=== PATIENT | female | born 1945 | race Caucasian/White ===

== ENCOUNTER 2021-09-27 07:43 | Outpatient (CLI) | payer MEDICARE, BC, SELFPAY ==
--- NOTE | 2021-09-27 07:45 | MM_ITS ---
Final Report Patient: MAIRA GARCIA Facility:?[facility] Patient ID:?[id number] Study:?XRay Breast Bilateral 3D W/CAD-09/27/2021 8:43:35 AM Ordering Physician:Gladys La Final Report: BILATERAL MAMMOGRAM WITH COMPUTER-AIDED DETECTION AND TOMOSYNTHESIS TECHNIQUE: CC and MLO views were obtained. These mammographic images have been obtained using full-field digital technique. These mammographic images were interpreted with the benefit of computer-aided detection. Breast Tomosynthesis was used in this interpretation. COMPARISON FILM: 03/15/2020, 03/11/2019, 03/11/2018. FINDINGS: There are scattered areas of fibroglandular density IMPRESSION: There is no radiographic evidence for malignancy. ASSESSMENT: BI-RADS Category 1: Negative RECOMMENDATION: Routine screening mammogram in 1 year. A lay language report of this examination will be provided to the patient. Gerson Gregory M.D. Diagnostic/Musculoskeletal Radiologist [email or web address] JACOB/ela Transcribed: 3:16 p.m. CHRIS/Dictated by: Gerson Gregory MD @ 09/27/2021 9:10:00 AM (Electronic Signature)
== END 2021-09-27 07:44 | disposition home or self-care (01) ==
LOC: MAMMO 07:46
PROVIDERS: Visit Provider Internal Medicine
DX: Z12.31 Encounter for screening mammogram for malignant neoplasm of breast (principal); R92.8 Other abnormal and inconclusive findings on diagnostic imaging of breast
CPT/HCPCS: 77063; 77067

== ENCOUNTER 2022-01-09 16:25 | Outpatient (CLI) | payer MEDICARE, BC, SELFPAY ==
[2022-01-09 13:28] LABS: Chloride* 102 mmol/L (96-114); Sodium* 135 mmol/L (135-149)
[2022-01-09 13:29] LABS: Potassium* 4.6 mmol/L (3.6-5.1)
[2022-01-09 13:31] LABS: Blood Urea Nitrogen* 21 mg/dL (7-30); Carbon Dioxide* 23 mmol/L (20-32); Cholesterol* 197 mg/dL (90-199); Creatinine* 0.9 mg/dL (0.5-1.5); Estimated Glomerular Filt Rate 67 ml/min; Glucose* 112 mg/dL (60-115)
[2022-01-09 13:32] LABS: Calcium* 9.8 mg/dL (8.4-10.6); HDL Cholesterol* 59 mg/dL (>=50); LDL Cholesterol Calculated 112 mg/dL (<100); Triglycerides* 132 mg/dL (40-149)
== END 2022-01-09 16:26 | disposition home or self-care (01) ==
PROVIDERS: Visit Provider Internal Medicine
DX: E78.5 Hyperlipidemia, unspecified (principal); I10 Essential (primary) hypertension
CPT/HCPCS: 80048; 80061

== ENCOUNTER 2022-12-14 09:01 | Outpatient (CLI) | payer MEDICARE, BC, SELFPAY ==
--- NOTE | 2022-12-14 09:15 | CRLHL7_ITS ---
For Patients: As a result of the Century Cures Act, medical imaging exams and procedure reports are released immediately into your electronic medical record. You may view this report before your referring provider. If you have questions, please contact your health care provider. BILATERAL SCREENING MAMMOGRAM WITH COMPUTER-AIDED DETECTION AND TOMOSYNTHESIS TECHNIQUE: CC and MLO views were obtained. These mammographic images have been obtained using full-field digital technique. These mammographic images were interpreted with the benefit of computer-aided detection. Breast Tomosynthesis was used in this interpretation. COMPARISON FILM: 09/27/21, 03/15/20, 03/11/19. FINDINGS: The breasts are heterogeneously dense, which may obscure small masses IMPRESSION: There is no radiographic evidence for malignancy. ASSESSMENT: BI-RADS Category 2: Benign RECOMMENDATION: Routine screening mammogram in 1 year. A lay language report of this examination will be provided to the patient. Keenan Huitron M.D. Diagnostic Radiologist [email or web address] CHRIS/Dictated by: Keenan Huitron MD @ 12/14/2022 12:33:00 PM (Electronically Signed)
== END 2022-12-14 09:02 | disposition home or self-care (01) ==
LOC: MAMMO 09:02
PROVIDERS: PCP Internal Medicine; Visit Provider Internal Medicine
DX: Z12.31 Encounter for screening mammogram for malignant neoplasm of breast (principal); R92.2 Inconclusive mammogram
CPT/HCPCS: 77063; 77067

== ENCOUNTER 2022-12-24 06:31 | Outpatient (CLI) | payer MEDICARE, BC, SELFPAY ==
--- NOTE | 2022-12-24 08:07 | P.ANES_ITS ---
Anesthesia Charges Start Date/Time Anesthesia Start Date: 12/24/22 Anesthesia Start Time: 07:20 Stop Date/Time Anesthesia Stop Date: 12/24/22 Anesthesia Stop Time: 08:02 Summary Extremes of Age - Over 70 or under 1: INVESTMENT SPECIALIST
== END 2022-12-24 06:32 | disposition home or self-care (01) ==
LOC: OP CLINIC 06:33
PROVIDERS: PCP Internal Medicine; Visit Provider Surgery
DX: Z12.11 Encounter for screening for malignant neoplasm of colon (principal); K64.4 Residual hemorrhoidal skin tags; K57.30 Diverticulosis of large intestine without perforation or abscess without bleeding; Z86.010 Personal history of colon polyps
CPT/HCPCS: 45378; 812; 99100; J2704

== ENCOUNTER 2023-01-03 08:42 | Emergency (ER) | payer MEDICARE, BC, SELFPAY ==
[2023-01-03 09:03] VITALS: BP 116/71; PULSE 88; RESP 16; TEMP 36.1; O2SAT 97; BMI 27.3
== END 2023-01-03 10:37 | disposition left against medical advice (07) ==
LOC: ED 10:34
PROVIDERS: Emergency Provider Emergency Medicine; PCP Internal Medicine
DX: Z53.21 Procedure and treatment not carried out due to patient leaving prior to being seen by health care provider (principal)

== ENCOUNTER 2023-01-09 08:30 | Outpatient (CLI) | payer MEDICARE, BC, SELFPAY | END 2023-01-09 08:31 | disposition home or self-care (01) | LOC: NFLDREF 01-14 06:00 | PROVIDERS: PCP Internal Medicine; Referring Provider Internal Medicine; Visit Provider Internal Medicine | DX: E78.5 Hyperlipidemia, unspecified (principal); I10 Essential (primary) hypertension; R73.03 Prediabetes | CPT/HCPCS: 80048; 80061 ==

== ENCOUNTER 2023-12-25 07:35 | Outpatient (CLI) | payer MEDICARE, BC, SELFPAY ==
--- OUTSIDE RECORDS SUMMARY | 2023-12-25 07:37 | XMS_ITS | Clinical Summary ---
Author Organization [facility] Address [address] [place] [address] Care Team Providers Care Logistic Manager Name Role Phone Unavailable Primary Care Provider Unavailabl e Source Comments You are receiving this document as you are listed as the primary care provider,follow-up provider, or the patient has been referred to you for consultation.This is in compliance with the Medicare and[facility] EHR Incentive Program,which states Providers who transition their patient to another setting of careor provider of care or refers their patient to another provider of care shouldprovide summary care record for each transition of care or referral. [employer] Allergies Active Allergy Reactions Criticality Noted Date Comments Celecoxib Hives 11/28/2011 Lactose Diarrhea 01/25/2012 Medications Medication Sig Dispensed Refills Start Date End Date Status lisinopril (ZESTRIL) 40 MG tablet Take 40 mg by mouth daily (every 24 hours). 01/24/2012 Active citalopram (CELEXA) 20 MG tablet Take 20 mg by mouth daily (every 24 hours). 01/24/2012 Active aspirin EC 81 MG enteric coated tablet Take 81 mg by mouth daily (every 24 hours). 01/24/2012 Active simvastatin (ZOCOR) 20 MG tablet Take 20 mg by mouth nightly. 01/24/2012 Active [place]-3 Fatty Acids (SUPER OMEGA 3 EPA/DHA OR) Take 1 tablet by mouth daily (every 24 hours). 01/24/2012 Active raloxifene (EVISTA) 60 MG tablet Take 60 mg by mouth daily (every 24 hours). 01/24/2012 Active oxyCODONE (ROXICODONE) 5 MG immediate release tablet Take 1 tablet by mouth every 2 hours as needed. 90 tablet 0 01/26/2012 Active Additional Information Patient not taking.Reported on 01/18/2021 docusate sodium (COLACE) 100 MG capsule Take 1 capsule by mouth 2 times daily. 30 capsule 0 01/26/2012 Active Additional Information Patient not taking.Reported on 01/18/2021 calcium carbonate (AKA MAALOX QUICK DISSOLVE) 600 MG chewable tablet Take 1 tablet by mouth daily (every 24 hours). 01/24/2012 Active Active Problems No known active problems Immunizations Name Administration Dates Next Due Flu Vac Preserv Free (3+yrs) 12/18/2011 Social History Tobacco Use Types Packs/Day Years Used Date Smoking Tobacco: Never Smokeless Tobacco: Never Sex and Gender Information Value Date Recorded Sex Assigned at Not on file Gender Identity Not on file Sexual Orientation Not on file Last Filed Vital Signs Vital Sign Reading Time Taken Comments Blood Pressure 127/75 01/26/2012 7:00 AM CDT Pulse 66 01/26/2012 7:00 AM CDT Temperature 36.8 ??C (98.2 ??F) 01/26/2012 7:00 AM CD T Respiratory Rate 16 01/26/2012 7:00 AM CDT Oxygen Saturation 95% 01/26/2012 7:00 AM CDT Inhaled Oxygen Concentration - - Weight 69.9 kg (154 lb) 01/18/2021 10:24 AM CDT Height 157.5 cm (5' 2) 01/18/2021 10:24 AM CDT Body Mass Index 28.17 01/18/2021 10:24 AM CDT Plan of Treatment Health Maintenance Due Date Last Done Comments Hep C Screening (Preventive Services) 1945 Medicare Annual Wellness Visit 1945 Dexa 10/15/2011 RSV (1 - 1-dose 75+ series) 2021 DTaP/Tdap/Td (2 - Tdap) 08/05/2023 08/04/2013 COVID-19 Vaccine ( season) 2023 07/17/2021, 01/24/2021, 06/15/2020, Additional history exists Influenza (#1) 2023 01/09/2021, 11/30, 12/30/2017, Additional history exists Pneumococcal 65+ Yrs Completed 02/02/2015, 01/08/2014, 01/08/2014 Zoster/Shingles Completed 03/15/2020, 10/2019, 09/13/2016 HepA Aged Out No longer eligi ble based on patient's age to complete this topic HepB Aged Out No longer eligi ble based on patient's age to complete this topic Hib Aged Out No longer eligi ble based on patient's age to complete this topic IPV (Polio) Aged Out No longer eligi ble based on patient's age to complete this topic MCV4 Aged Out No longer eligi ble based on patient's age to complete this topic Advance Directives * Full Code (Latest Code Status on File) Date Activated Date Inactivated Comments 01/25/2012 3:07 PM 01/26/2012 4:11 PM
--- OUTSIDE RECORDS SUMMARY | 2023-12-25 07:37 | XMS_ITS | Clinical Summary ---
Author Organization [facility] Address [address] [place] [address] Care Team Providers Care Roper Operator Name Role Phone Unavailable Primary Care Provider Unavailabl e Allergies No known active allergies Medications Medication Sig Dispensed Refills Start Date End Date Status aspirin (ASA) 81 MG EC tabletIndications:Alcoh ol abuse Take 1 tablet (81 mg) by mouth daily 30 tablet 1 06/05/2018 Active folic acid (FOLVITE) 1 MG tabletIndications:Alcoh ol abuse Take 1 tablet (1 mg) by mouth daily 30 tablet 1 06/05/2018 Active multivitamin w/minerals (THERA-VIT-M) tabletIndications:Alcoh ol abuse Take 1 tablet by mouth daily 30 tablet 1 06/05/2018 Active vitamin D3 (CHOLECALCIFEROL) 1000 units (25 mcg) tablet Take by mouth daily 07/08/2018 Active hydrOXYzine (ATARAX) 10 MG tabletIndications:Moder ate episode of recurrent major depressive disorder TAKE 1 TABLET(10 MG) BY MOUTH EVERY 4 HOURS NEEDED FOR ANXIETY 90 tablet 1 10/02/2019 Active amLODIPine (NORVASC) 2.5 MG tabletIndications:Essen tial hypertension Take 1 tablet (2.5 mg) by mouth daily 90 tablet 03/10/2020 Active lisinopril (ZESTRIL) 40 MG tabletIndications:Essen tial hypertension TAKE 1 TABLET(40 MG) BY MOUTH DAILY 30 tablet 06/07/2020 Active citalopram (CELEXA) 40 MG tabletIndications:Moder ate episode of recurrent major depressive disorder TAKE 1 TABLET(40 MG) BY MOUTH DAILY 30 tablet 06/07/2020 Active mirtazapine (REMERON) 15 MG tabletIndications:Moder ate episode of recurrent major depressive disorder TAKE 1 TABLET(15 MG) BY MOUTH AT BEDTIME 30 tablet 06/07/2020 Active simvastatin (ZOCOR) 20 MG tabletIndications:Hyper lipidemia, unspecified hyperlipidemia type TAKE 1 TABLET(20 MG) BY MOUTH AT BEDTIME 30 tablet 06/07/2020 Active Active Problems Problem Noted Date Diagnosed Date Prediabetes 12/17/2018 Senile osteoporosis 12/12/2018 Alcohol dependence in remission 07/09/2018 Essential hypertension 07/08/2018 Moderate episode of recurrent major depressive d isorder 07/08/2018 Hyperlipidemia, unspecified hyperlipidemia type 07/08/2018 Osteopenia, unspecified location 07/08/2018 Resolved Problems Problem Noted Date Diagnosed Date Resolved Date Withdrawn from alcohol detoxification program 05/27/19 19 07/09/2018 Alcohol abuse 05/27/2018 07/09/2018 Immunizations Name Administration Dates Next Due Influenza (High Dose) Trivalent,PF (Fluzone) Influenza (intradermal) 12/30/2017 Pneumococcal, Unspecified 02/02/2015,01/08/2014 Tdap (Adult) Unspecified Formulation 08/04/2013 Zoster vaccine, live 09/13/2016 Social History Tobacco Use Types Packs/Day Years Used Date Smoking Tobacco: Never Smokeless Tobacco: Never Alcohol Use Standard Drinks/Week Comments Not Currently 0 (1 standard drink = 0.6 oz pur e alcohol) 5 drinks a day PHQ-2 Answer Date Recorded PHQ-2 Score 0 08/07/2019 Adolescent Education Answer Date Record ed Getting School Help Needed Not on file 01/06 Sex and Gender Information Value Date Recorded Sex Assigned at Not on file Gender Identity Not on file Sexual Orientation Not on file Last Filed Vital Signs Vital Sign Reading Time Taken Comments Blood Pressure 121/66 01/15/2019 11:09 AM CDT Pulse 103 01/15/2019 11:09 AM CDT Temperature 37.7 ??C (99.8 ??F) 01/15/2019 11:09 AM C DT Respiratory Rate 16 01/15/2019 11:09 AM CDT Oxygen Saturation 96% 01/15/2019 11:09 AM CDT Inhaled Oxygen Concentration - - Weight 65.3 kg (144 lb) 12/12/2018 7:44 AM CDT Height 157.5 cm (5' 2) 12/12/2018 7:44 AM CDT Body Mass Index 26.34 12/12/2018 7:44 AM CDT Plan of Treatment Not on file Advance Directives For more information, please contact: [phone] * Full Code (Latest Code Status on File) Date Activated Date Inactivated Comments 05/27/2018 11:17 AM 06/04/2018 7:49 PM Question Answer Comments Code status determined by: Unable to det ermine; FULL CODE until documents or legal decision maker available
--- OUTSIDE RECORDS SUMMARY | 2023-12-25 07:37 | XMS_ITS | Clinical Summary ---
Author Organization [facility] Address [place], [place] [address] Care Team Providers Care Landscape Specialist Name Role Phone Bessie Collins MD Primary Care Provider [phone] Sanjay Zhang MD Unavailable [phone] Allergies Active Allergy Reactions Criticality Noted Date Comments Celecoxib Hives,Itching 09/07/2015 Medications Medication Sig Dispensed Refills Start Date End Date Status LISINOPRIL 40 MG TAB Once daily Active HYDROCHLOROTHIAZIDE 25 MG TAB take 1 tablet (25mg) by oral route once daily Active CITRUCEL FIBER LAXATIVE PACKET as directed Active MULTIVITAMIN TAB take 1 tablet by oral route once daily with food Active ACTONEL 35 MG TAB take 1 tablet (35mg) by oral route once weekly in the morning, at least 30 minutes before the first food, beverage, or medication of the day Active bromfenac 0.07% (PROLENSA) 0.07 % ophthalmic solution 1 drop in surgical eye 1 time daily x 4wks. Start 1 day before surgery 3 mL 1 08/13/2015 Active prednisoLONE acetate 1% ophthalmic (ECONOPRED PLUS, PRED FORTE, OMNIPRED) suspension 1 drop in surgical eye 4 times daily x 4wks. Start 1 day before surgery 15 mL 1 07/18/2015 Active moxifloxacin (VIGAMOX) 0.5 % ophthalmic solution 1 drop in surgical eye 4 times daily x 7days. Start 1 day before surgery 3 mL 1 07/18/2015 Active citalopram (CELEXA) 20 mg tablet Take 20 mg by mouth once daily. Active simvastatin (ZOCOR) 20 mg tablet Take 20 mg by mouth at bedtime. Active amLODIPine (NORVASC) 2.5 mg tablet Take 2.5 mg by mouth once daily. Active raloxifene (EVISTA) 60 mg tablet Take 60 mg by mouth once daily. Active lisinopril (PRINIVIL; ZESTRIL) 40 mg tablet Take 40 mg by mouth once daily. Active CALCIUM CITRATE/VITAMIN D3 (CITRACAL + D ORAL) Take 200 mg by mouth once daily. Active aspirin (ECOTRIN) 81 mg enteric coated tablet Take 81 mg by mouth once daily with a meal. Active Active Problems Problem Noted Date Diagnosed Date Family history of ischemic heart disease 006 Pure hypercholesterolemia Family History Medical History Relation Name Comments Cancer-breast Sister Cancer-colon No Family History Cancer-ovarian No Family History Relation Name Status Comments Sister Social History Tobacco Use Types Packs/Day Years Used Date Smoking Tobacco: Former Smokeless Tobacco: Never Alcohol Use Standard Drinks/Week Comments Yes 0 (1 standard drink = 0.6 oz pur e alcohol) Sex and Gender Information Value Date Recorded Sex Assigned at Not on file Gender Identity Not on file Sexual Orientation Not on file Obstetrics History Para Term AB IAB SAB Ectopic Multiple Livin g Live Births 0 0 0 0 0 0 0 0 Last Filed Vital Signs Vital Sign Reading Time Taken Comments Blood Pressure 146/84 09/29/2015 11:45 AM CDT Pulse 81 09/29/2015 11:45 AM CDT Temperature 36.1 ??C (97 ??F) 09/29/2015 8:51 AM CDT Respiratory Rate 16 09/29/2015 11:45 AM CDT Oxygen Saturation 97% 09/29/2015 11:45 AM CDT Inhaled Oxygen Concentration - - Weight 59.9 kg (132 lb) 09/28/2015 12:42 AM CDT Height 157.5 cm (5' 2) 09/28/2015 12:42 AM CDT Body Mass Index 24.14 09/28/2015 12:42 AM CDT Plan of Treatment Health Maintenance Due Date Last Done Comments Tdap 1957 Depression screening for age 12+ 1958 BMI (ht and wt on same day) for age 18+ 1964 Hepatitis C screening for age 18-79 1964 Tetanus booster 1966 Zoster (shingles) series for age 50+ (1 of 2) 10/14/18 97 DEXA/DXA scan for age 65+ 10/15/2011 Pneumococcal series for age 65+ (1 of 1 - PCV) 012 RSV vaccine for adults or pr egnancy (1 - 1-dose 75+ series) 2021 COVID-19 vaccine series ( - 2023- season) 4 Influenza for age 65+ 12/01/2023 Medical Devices Implanted Type Area Health Underwriter Device Identifier Shelf Expiration Date Model / Serial / Lot Lens Iol Toric Iq At3 15.0 - [id number] Implanted:Qty: 1 on 09/08/2015 by Candice Booth MD at [facility] Right: Eye [employer] 01/07/2017 SN6AT3# / [id number] / Lens Iol Toric Iq At3 14.0 - [id number] Implanted:Qty: 1 on 09/29/2015 by Candice Booth MD at [facility] Left: Eye [employer] 05/29/2017 SN6AT3# / [id number] / Advance Directives * Full Code (Latest Code Status on File) Date Activated Date Inactivated Comments 09/29/2015 8:43 AM 09/29/2015 2:07 PM * Full Code Date Activated Date Inactivated Comments 09/08/2015 6:16 AM 09/08/2015 10:47 AM Care Teams Landscape Specialist Relationship Specialty Start Date End Date Bessie Collins MD [address] [place] [address] PCP - General Internal Medicine 09/06/15 Sanjay Zhang MD [address] [place] [address] Internal Medicine 09/06/15
--- OUTSIDE RECORDS SUMMARY | 2023-12-25 07:37 | XMS_ITS | Continuity of Care Document ---
Author Organization [facility] Address [address] [place] [address] Phone Care Team Providers Care Clothespin Drier Operator Name Role Phone Jc Zamora MD Unavailable Unavailable Procedures Procedure Date Postop Followup Visit Remove Intraspinal Lesion, Lumbar Advance Directives Directive Yes / No Effective Date File Name No Information Encounters Encounter Description Practice Location Reason(s) For Visit Diagnoses Date Provider Providers Copied on Encounter [facility], [address], [place], [place], [id number], [place] tel:[phone] [facility] No Information 5 Sera Greene. [facility], [address] [place] [address] , [place], [address], [place]. tel:[phone] [facility], [address] [place] [address], [address], [place] tel:[phone] [facility] No Information 2 Sera Greene. [facility], [address] [place], [address], [place]. tel:[phone] Referring Provider: LEATHA Collazo [place]. tel:[phone] [facility], [address] [address], [place], [address], [place] tel:[phone] [facility] No Information 2 Sera Greene. [facility], [address] [place], [address], [place]. tel:[phone] Referring Provider: LEATHA Collazo [place]. tel:[phone] Family History Family Member Type Diagnosis Age At Onset No Information Payers Payer name Insurance type Covered alliance party ID Authoriza tion(s) No Information Social History Type Description Quantity Date Captured Comments Sex Female Smoking Status No Information Chief Complaint And Reason For Visit No Information Reason For Referral Reason For Referral No Information History Of Present Illness Encounter Date Complaint History Of Prese nt Illness No Information Functional Status Date Functional Assessmen t No Information Instructions Date Instruction Additional Infor mation No Information Assessments Type Assessment Date No Information Patient Care Teams Name Effective Dates (start - stop) Status Members No Information
--- OUTSIDE RECORDS SUMMARY | 2023-12-25 07:37 | XMS_ITS | Referral Summary ---
Author Organization [facility] Address [address] [place] [address] Care Team Providers Care Central Office Associate Name Role Phone Unavailable Primary Care Provider [...] Advance Directives For more information, please contact: [phone] * Full Code (Latest Code Status on File) Date Activated Date Inactivated Comments 05/27/2018 11:17 AM 06/04/2018 7:49 PM Question Answer Comments Code status determined by: Unable to det ermine; FULL CODE until documents or legal decision maker available
--- OUTSIDE RECORDS SUMMARY | 2023-12-25 07:37 | XMS_ITS | Encounter Summary ---
Author Organization [facility] Address [facility] [place] [address] Care Team Providers Care Psychosocial Rehabilitation Counselor Name Role Phone [facility]- Primary Care Provider Juancho Deluca MD Primary Care Provider [phone] Juancho Deluca MD Unavailable [phone] Reason for Visit * Reason Onset Date Comments MH/CD Inpatient 05/27/2018 Encounter Details Date Type Department Care Team ([facility] st Contact Info) Description 05/27/2018 Telephone [facility] Behavioral Health Intake [address] [place] [phone] Generic, Behavioral Intake, MH/CD Inpatient Social History Tobacco Use Types Packs/Day Years Used Date Smoking Tobacco: Never Assessed Alcohol Use Standard Drinks/Week Comments Yes 0 (1 standard drink = 0.6 oz pur e alcohol) 5 drinks a day Sex and Gender Information Value Date Recorded Sex Assigned at Not on file Gender Identity Not on file Sexual Orientation Not on file documented as of this encounter Miscellaneous Notes * Telephone Encounter - Jovan Groves - 05/27/2018 10:42 AM CST Previous tele note from intake incorrect. Pt assigned to: Lana/3A REDUCER * Telephone Encounter - Micki Morris - 05/27/2018 6:41 AM CST 05/27/18 S: pt was bib son to [facility]. Pt is seeking etoh detox. B: pt reports drinking 5 glasses of burgundy daily for the past several months. Pt lives alone and is scared, fears she is going through withdrawal. Denies si. Pt had low K in the er but was given oral K. Denies other drug use. States she is not on meds. A: pt is cooperative. Vol. R: admit 3a/gueritaali -cd REDUCER documented in this encounter Plan of Treatment Not on file documented as of this encounter Visit Diagnoses Not on filedocumented in this encounter Care Teams Psychosocial Rehabilitation Counselor Relationship Specialty Start Date End Date [facility]- [address] [place] [address] PCP - General 05/27/18 07/07/18 Juancho Deluca MD [address], [place] [address] PCP - General Family Practice 07/08/18 12/22/20 [place] [address] [place] [address] Assigned PCP 06/12/18 12/15/21 documented as of this encounter
--- NOTE | 2023-12-25 07:45 | CRLHL7_ITS ---
For Patients: As a result of the Century Cures Act, medical imaging exams and procedure reports are released immediately into your electronic medical record. You may view this report before your referring provider. If you have questions, please contact your health care provider. BILATERAL SCREENING MAMMOGRAM WITH COMPUTER-AIDED DETECTION AND TOMOSYNTHESIS TECHNIQUE: CC and MLO views were obtained. These mammographic images have been obtained using full-field digital technique. These mammographic images were interpreted with the benefit of computer-aided detection. Breast Tomosynthesis was used in this interpretation. COMPARISON FILM: 12/14/22, 09/27/21, 03/15/20. FINDINGS: There are scattered areas of fibroglandular density IMPRESSION: There is no radiographic evidence for malignancy. ASSESSMENT: BI-RADS Category 2: Benign RECOMMENDATION: Routine screening mammogram in 1 year. A lay language report of this examination will be provided to the patient. Keenan Huitron M.D. Diagnostic Radiologist [email or web address] CHRIS/Dictated by: Keenan Huitron MD @ 01/02/2024 11:26:00 AM (Electronically Signed)
== END 2023-12-25 07:36 | disposition home or self-care (01) ==
LOC: MAMMO 07:35
PROVIDERS: PCP Internal Medicine; Visit Provider Internal Medicine
DX: Z12.31 Encounter for screening mammogram for malignant neoplasm of breast (principal)
CPT/HCPCS: 77063; 77067

== ENCOUNTER 2024-01-13 08:20 | Outpatient (CLI) | payer MEDICARE, BC, SELFPAY ==
--- OUTSIDE RECORDS SUMMARY | 2024-01-13 15:15 | XMS_ITS | Clinical Summary ---
Author Organization [facility] Address [place], [place] [address] Care Team Providers Care Coin Machine Assembler Name Role Phone Bessie Collins MD Primary Care Provider [phone] Sanjay Zhang MD Unavailable Unavailable Allergies Active Allergy Reactions Criticality Noted Date [...] series) 2021 COVID-19 vaccine series ( - season) 4 Influenza for age 65+ 12/01/2023 Medical Devices Implanted Type Area Licensed Nuclear Control Room Operator Device Identifier Shelf Expiration Date Model / Serial / Lot Lens Iol Toric Iq At3 15.0 - [id number] Implanted:Qty: 1 on 09/08/2015 by Candice Booth MD at [facility] Right: Eye [employer] 01/07/2017 SN6AT3# / [id number] / Lens Iol Toric Iq At3 14.0 - [id number] Implanted:Qty: 1 on 09/29/2015 by Candice Booth MD at [facility] Left: Eye [employer] 05/29/2017 SN6AT3# / [id number] / Advance Directives * Full Code (Latest Code Status on File) Date Activated Date Inactivated Comments 09/29/2015 8:43 AM 09/29/2015 2:07 PM * Full Code Date Activated Date Inactivated Comments 09/08/2015 6:16 AM 09/08/2015 10:47 AM Care Teams Coin Machine Assembler Relationship Specialty Start Date End Date Bessie Collins MD [address] [place] [address] PCP - General Internal Medicine 09/06/15 Sanjay Zhang MD [address] [place] [address] Internal Medicine 09/06/15
--- OUTSIDE RECORDS SUMMARY | 2024-01-13 15:15 | XMS_ITS | Referral Summary ---
Author Organization [facility] Address [address] [place] [address] Care Team Providers Care Supervisor Refractory Products Name Role Phone Unavailable Primary Care Provider [...] ate episode of recurrent major depressive disorder (H) TAKE 1 TABLET(10 MG) BY MOUTH EVERY [...] ate episode of recurrent major depressive disorder (H) TAKE 1 TABLET(40 MG) BY MOUTH DAILY 30 tablet 06/07/2020 Active mirtazapine (REMERON) 15 MG tabletIndications:Moder ate episode of recurrent major depressive disorder (H) TAKE 1 TABLET(15 MG) BY MOUTH AT [...] Advance Directives For more information, please contact: [phone] * Full Code (Latest Code Status on File) Date Activated Date Inactivated Comments 05/27/2018 11:17 AM 06/04/2018 7:49 PM Question Answer Comments Code status determined by: Unable to det ermine; FULL CODE until documents or legal decision maker available
--- OUTSIDE RECORDS SUMMARY | 2024-01-13 15:15 | XMS_ITS | Clinical Summary ---
Author Organization [facility] Address [address] [place] [address] Care Team Providers Care Site Supervising Technical Operator Name Role Phone Unavailable Primary Care Provider Unavailabl e Source Comments You are receiving this document as you are listed as the primary care provider,follow-up provider, or the patient has been referred to you for consultation.This is in compliance with the Medicare andMedicaid EHR Incentive Program,which states Providers who transition their patient to another setting of careor provider of care or refers their patient to another provider of care shouldprovide summary care record for each transition of care or referral. [employer] Allergies Active Allergy Reactions Criticality Noted Date [...] 20 mg by mouth nightly. 01/24/2012 Active Sho[place]-3 Fatty Acids (SUPER OMEGA 3 EPA/DHA OR) [...] on patient's age to complete this topic Infant RSV Aged Out No longer eligi ble based on patient's age to complete this topic MCV4 Aged Out No longer eligi ble based on patient's age to complete this topic Advance Directives * Full Code (Latest Code Status on File) Date Activated Date Inactivated Comments 01/25/2012 3:07 PM 01/26/2012 4:11 PM
--- OUTSIDE RECORDS SUMMARY | 2024-01-13 15:15 | XMS_ITS | Encounter Summary ---
Author Organization [place] Address [facility] [place] [address] Care Team Providers Care Batch Attendant Name Role Phone [facility]- Primary Care Provider Juancho Deluca MD Primary Care Provider [phone] Juancho Deluca MD Unavailable [phone] Reason for Visit * Reason Onset Date Comments MH/CD Inpatient 05/27/2018 Encounter Details Date Type Department Care Team ([facility] st Contact Info) Description 05/27/2018 Telephone [facility] Behavioral Health Intake [address] [place] [id number] Generic, Behavioral Intake, MH/CD Inpatient Social History [...] from intake incorrect. Pt assigned to: Lana/3A UM EVAPORATION OPERATOR * Telephone Encounter - Micki Morris - [...] is cooperative. Vol. R: admit 3a/gueritaali -cd UM EVAPORATION OPERATOR documented in this encounter Plan of Treatment Not on file documented as of this encounter Visit Diagnoses Not on filedocumented in this encounter Care Teams Batch Attendant Relationship Specialty Start Date End Date [facility]- [address] [place] [address] PCP - General 05/27/18 07/07/18 Juancho Deluca MD [address] [address] PCP - General Family Practice 07/08/18 12/22/20 [place] [address] [place] [address] Assigned PCP 06/12/18 12/15/21 documented as of this encounter
--- OUTSIDE RECORDS SUMMARY | 2024-01-13 15:15 | XMS_ITS | Clinical Summary ---
Author Organization [facility] Address [address] [place] [address] Care Team Providers Care Restaurant Floor Manager Name Role Phone Unavailable Primary Care [...] Advance Directives For more information, please contact: [phone] * Full Code (Latest Code Status on File) Date Activated Date Inactivated Comments 05/27/2018 11:17 AM 06/04/2018 7:49 PM Question Answer Comments Code status determined by: Unable to det ermine; FULL CODE until documents or legal decision maker available
--- OUTSIDE RECORDS SUMMARY | 2024-01-13 15:15 | XMS_ITS | Continuity of Care Document ---
Author Organization [facility] Address [address] [place] [address] Phone Care Team Providers Care Grid Casting Machine Operator Helper Name Role Phone Jc Zamora MD Unavailable Unavailable Procedures Procedure Date Postop Followup Visit Remove Intraspinal Lesion, Lumbar Advance Directives Directive Yes / No Effective Date File Name No Information Encounters Encounter Description Practice Location Reason(s) For Visit Diagnoses Date Provider Providers Copied on Encounter [facility], [address], [place], [place], [id number], [place] tel:[phone] [facility] No Information 5 Sera Greene. [facility], [address] [place] [address] , [place], [address], [place]. tel:[phone] [facility], [address] [place] [address], [address], [place] tel:[phone] [facility] No Information 2 Sera Greene. [facility], [address] [place], [address], [place]. tel:[phone] Referring Provider: LEATHA Collazo [place]. tel:[phone] [facility], [address] [address], [place], [address], [place] tel:[phone] [facility] No Information 2 Sera Greene. [facility], [address] [place], [address], [place]. tel:[phone] Referring Provider: LEATHA Collazo [place]. tel:[phone] Family History Family Member Type Diagnosis Age [...]
== END 2024-01-13 08:21 | disposition home or self-care (01) ==
LOC: NFLDREF 15:13
PROVIDERS: PCP Internal Medicine; Referring Provider Internal Medicine; Visit Provider Internal Medicine
DX: R73.03 Prediabetes (principal); M85.80 Other specified disorders of bone density and structure, unspecified site; I10 Essential (primary) hypertension; E78.5 Hyperlipidemia, unspecified; M81.0 Age-related osteoporosis without current pathological fracture
CPT/HCPCS: 80048; 80061; 82306

== ENCOUNTER 2024-12-21 07:05 | Outpatient (CLI) | payer MEDICARE, BC, SELFPAY ==
--- NOTE | 2024-12-21 07:15 | CRLHL7_ITS ---
For Patients: As a result of the Century Cures Act, medical imaging exams and procedure reports are released immediately into your electronic medical record. You may view this report before your referring provider. If you have questions, please contact your health care provider. Indication: Lump Technique: Grayscale and color Doppler ultrasound of the left anterior leg soft tissues performed in the area of concern. Comparison: None Findings: Hyperechoic nonvascular lesion within the subcutaneous fat located just beneath the skin which measures 1.3 x 0.8 x 1.4 cm. A small central area of fluid noted. Impression: Subcutaneous bruise or lipoma. This measures 1.3 x 0.8 x 1.4 cm. Dictated by Keenan Huitron MD @ 12/21/2024 3:36:07 PM (Electronically Signed)
== END 2024-12-21 07:06 | disposition home or self-care (01) ==
LOC: US 07:06
PROVIDERS: PCP Internal Medicine; Visit Provider Family Medicine
DX: M79.89 Other specified soft tissue disorders (principal)
CPT/HCPCS: 76882

== ENCOUNTER 2024-12-25 15:31 | Outpatient (CLI) | payer MEDICARE, BC, SELFPAY | END 2024-12-25 15:32 | disposition home or self-care (01) | LOC: NFLDREF 15:32 | PROVIDERS: PCP Internal Medicine; Visit Provider Emergency Medicine | DX: N30.00 Acute cystitis without hematuria (principal) | CPT/HCPCS: 87086 ==

== ENCOUNTER 2024-12-29 07:58 | Outpatient (CLI) | payer MEDICARE, BC, SELFPAY ==
--- NOTE | 2024-12-29 08:15 | CRLHL7_ITS ---
For Patients: As a result of the Century Cures Act, medical imaging exams and procedure reports are released immediately into your electronic medical record. You may view this report before your referring provider. If you have questions, please contact your health care provider. INDICATION: BILATERAL SCREENING MAMMOGRAM, ASYMPTOMATIC 79 Y/O FEMALE COMPARISON: 12/25/2023, 12/14/2022, 09/27/2021 TECHNIQUE: Digital mammogram in CC and MLO projections including computer-aided detection (CAD) and tomosynthesis. BREAST COMPOSITION: The breasts are heterogeneously dense, which may obscure small masses. FINDINGS: No suspicious findings. ASSESSMENT: BI-RADS 1 Negative RECOMMENDATION: Annual screening mammogram. A lay language report of this examination will be provided to the patient. Dictated by: Keenan Huitron MD @ 12/29/2024 09:16:16 (Electronically Signed)
== END 2024-12-29 07:59 | disposition home or self-care (01) ==
LOC: MAMMO 07:59
PROVIDERS: PCP Internal Medicine; Visit Provider Internal Medicine
DX: Z12.31 Encounter for screening mammogram for malignant neoplasm of breast (principal); R92.333 Mammographic heterogeneous density, bilateral breasts
CPT/HCPCS: 77063; 77067

== ENCOUNTER 2025-01-14 08:03 | Outpatient (CLI) | payer MEDICARE, BC, SELFPAY | END 2025-01-14 08:04 | disposition home or self-care (01) | LOC: NFLDREF 01-16 11:38 | PROVIDERS: PCP Internal Medicine; Referring Provider Internal Medicine; Visit Provider Internal Medicine | DX: R73.03 Prediabetes (principal); I10 Essential (primary) hypertension; E78.5 Hyperlipidemia, unspecified; M81.0 Age-related osteoporosis without current pathological fracture | CPT/HCPCS: 80048; 80061; 82306 ==